=== PATIENT | male | born 2000 | race Caucasian/White ===

== ENCOUNTER 2025-02-28 21:31 | Emergency (ER) | payer OTHER ==
[~2025-02-28] VITALS: Ht 170.2 cm; Wt 73.0 kg
[2025-02-28 21:45] VITALS: O2SAT 100
[2025-02-28 22:52] LABS: BASOPHILS % 0.1 % (0.0-2.0); EOSINOPHILS % 0.4 % (0.0-5.0); HEMATOCRIT. 48.7 % (42.0-52.0); HEMOGLOBIN. 15.9 g/dL (14.0-18.0); LYMPHOCYTES % 12.7 % (20.0-50.0); MEAN PLATELET VOLUME 7.7 fl (7.4-10.4); MONOCYTES % 4.9 % (2.0-8.0); NEUTROPHILS % 81.9 % (40.0-76.0); PLATELET 311 x1000/uL (130-400); RED BLOOD CELL COUNT 5.31 mill/uL (4.7-6.1); RED CELL DISTRIBUTION WIDTH 14.7 % (11.6-14.6)
[2025-02-28 23:13] LABS: CREATININE 1.1 mg/dL (0.6-1.3); UREA NITROGEN BLOOD 11 mg/dL (9-23)
[2025-03-01] MEDS ORDERED: IOHEXOL-350 100 ML BOTTLE ONE (04:46)
[2025-03-01] MEDS ORDERED: IBUP-1455 MT (05:29)
[2025-03-01 05:47] VITALS: BP 141/81; PULSE 100; RESP 16; TEMP 36.8; O2SAT 99
== END 2025-03-01 05:50 | disposition home or self-care (01) ==
LOC: ER 21:31
DX: S09.93XA Unspecified injury of face, initial encounter (principal); S60.222A Contusion of left hand, initial encounter; S80.211A Abrasion, right knee, initial encounter; X58.XXXA Exposure to other specified factors, initial encounter; Y93.89 Activity, other specified; Y92.410 Unspecified street and highway as the place of occurrence of the external cause; Y99.8 Other external cause status
CPT/HCPCS: 80048; 85025; 86850; 86900; 86901; 36415; 73100; 73120; 99285; 74174; 71275; 70450; 70486; 72125; Q9967; Z7610 ×2